=== PATIENT | male | born 1945 | race Caucasian/White ===

== ENCOUNTER → 2020-07-17 | Day surgery (SDC) | payer OTHER ==
[2020-07-14 09:42] VITALS: BMI 23.8
[~2020-07-17] MED LIST: PROPOFOL 20 ML ONE
[2020-07-17 13:32] VITALS: BP 158/82; PULSE 51; TEMP 98.3
== END | disposition home or self-care (01) ==
LOC: FASU-ENDO 10:43
PROVIDERS: ATTEND Internal Medicine Gastroenterology
PROC: 0DJD8ZZ Inspection of Lower Intestinal Tract, Via Natural or Artificial Opening Endoscopic (ICD-10-PCS; principal; 2020-07-17 12:07)
DX: K62.5 Hemorrhage of anus and rectum (principal); K64.8 Other hemorrhoids; K57.30 Diverticulosis of large intestine without perforation or abscess without bleeding